=== PATIENT | female | born 1995 | race Caucasian/White ===

== ENCOUNTER 2017-03-08 20:55 | Emergency (ER) | payer OTHER ==
[~2017-03-08 20:55] MED LIST: 8 HOUR650 MG PO; ADVAIR 250-501 EACH INH; ALBUTEROL IN200 PUFF INH; CEFDINIR300 MG PO; NICODERM 14MG PA1 EA TD; PREDNISONE5 MG PO; ZITHROMAX250 MG PO; ZOVIRAX800 MG PO
[2017-03-08 21:56] LABS: URINE BILIRUBIN NEGATIVE (NEGATIVE); URINE BLOOD 1+ (NEGATIVE); URINE GLUCOSE (UA) NORMAL (NORMAL); URINE KETONE NEGATIVE (NEGATIVE); URINE LEUKOCYTE ESTERASE TRACE (NEGATIVE); URINE NITRATE NEGATIVE (NEGATIVE); URINE PROTEIN TRACE (NEGATIVE); URINE RBC 0-5 /[HPF] (0-2); UROBILINOGEN NORMAL mg/dL (<1.0)
[2017-03-08 21:57] LABS: URINE BACTERIA 1+ (NONE SEEN); URINE MUCUS 1+; URINE SQUAMOUS EPITHELIAL CELL 15-20 /[HPF] (NONE SEEN)
[2017-03-08 22:31] LABS: BASO # 0.1 10_X3_uL (0.0-0.1); BASO % 0.4 % (0.1-1.2); EOS # 0.2 10_X3_uL (0.0-0.4); EOS % 1.9 % (0.7-5.8); GRAN # 6.7 10_X3_uL (1.6-6.1); HEMATOCRIT 35.4 % (34-45); HEMOGLOBIN 11.8 g/dL (11.2-15.7); LYMPH % 39.8 % (19.3-51.7); MEAN CORPUSCULAR HGB CONC 33.3 g/dL (32.0-36.0); MEAN CORPUSCULAR VOLUME 84.1 fL (79-95); MEAN PLATELET VOLUME 10.1 fl (7.5-11.5); MONO # 0.5 10_X3_uL (0.2-0.9); MONO % 3.9 % (4.7-12.5); PLATELET COUNT 519 x10_3/uL (182-369); RED BLOOD COUNT 4.21 x10_6/uL (3.9-5.2); RED CELL DISTRIBUTION WIDTH 16.6 % (11.7-14.4); WHITE BLOOD COUNT 12.4 x10_3/uL (4.0-10.0)
[2017-03-08 22:44] LABS: ALKALINE PHOSPHATASE 101 U/L (50-136); ALT/SGPT 25 U/L (3.5-33.9); AST/SGOT 19 U/L (7.04-26.96); BLOOD UREA NITROGEN 12 mg/dL (7-18); CALCIUM 9.2 mg/dL (8.7-10.7); CARBON DIOXIDE 20 mmol/L (21-32); CREATININE < 0.5 mg/dL (0.6-1.3); GLUCOSE,RANDOM 106 mg/dL (70-99); LIPASE 22 U/L (6.75-60.75); POTASSIUM 3.7 mmol/L (3.5-5.1); SODIUM 136 mmol/L (136-145); TOTAL PROTEIN 7.3 gm/dL (6.4-8.2)
[2017-03-08 22:49] LABS: BILIRUBIN,TOTAL < 0.15 mg/dL (0.0-1.0)
[2017-03-08 23:47] LABS: URINE BACTERIA 1+ (NONE SEEN); URINE BILIRUBIN NEGATIVE (NEGATIVE); URINE BLOOD 1+ (NEGATIVE); URINE GLUCOSE (UA) NORMAL (NORMAL); URINE KETONE TRACE (NEGATIVE); URINE LEUKOCYTE ESTERASE TRACE (NEGATIVE); URINE NITRATE NEGATIVE (NEGATIVE); URINE PROTEIN TRACE (NEGATIVE); URINE SQUAMOUS EPITHELIAL CELL 0-10 /[HPF] (NONE SEEN)
[2017-03-08 23:48] LABS: URINE MUCUS TRACE
== END 2017-03-09 00:19 | disposition short-term general hospital (02) ==
LOC: ER 20:55
PROVIDERS: Emergency Medicine
DX: O26.891 Other specified pregnancy related conditions, first trimester (principal); O99.330 Smoking (tobacco) complicating pregnancy, unspecified trimester; R10.12 Left upper quadrant pain; Z3A.01 Less than 8 weeks gestation of pregnancy; J45.909 Unspecified asthma, uncomplicated; Z86.19 Personal history of other infectious and parasitic diseases; Z88.6 Allergy status to analgesic agent; F17.210 Nicotine dependence, cigarettes, uncomplicated
CPT/HCPCS: 36415; 80053; 80307; 81001; 81025; 83690; 84703; 85025; 87086; 99070; 99284